=== PATIENT | female | born 1955 | race Caucasian/White ===

== ENCOUNTER 2017-11-22 05:58 | Emergency (ER) | payer BC ==
[~2017-11-22] VITALS: Ht 177.8 cm; Wt 66.7 kg
[~2017-11-22 05:58] MED LIST: PROZ40CA PO; ROSU40 PO
[2017-11-22 06:01] VITALS: BP 165/74; PULSE 58; RESP 18; TEMP 97.3; O2SAT 99
[2017-11-22] MEDS ORDERED: FLUO40CA PO (06:10)
[2017-11-22] MEDS ORDERED: ROSU1TAB4 PO (06:11)
--- NOTE | 2017-11-22 07:00 | PD ---
HPI Chief Complaint: Musculoskeletal Complaint Time Seen by Provider: 06:56 Travel History International Travel<30 days: No Contact w/Intl Traveler<30days: No Traveled to known affect area: No History of Present Illness HPI The patient is a 62-year-old female that complains of right sided neck pain with pain shooting down to her elbow beginning last night. When she moves her neck it causes severe pain, a 10/10. She denies any numbness or weakness in the rest of her arm. She has a history of disc disease at lumbar 5. The pain is sharp when she moves her neck. PFSH Past Medical History Depression: Yes Cancer: No Cardiovascular Problems: Yes (MITRAL VALVE PROLAPSE) High Cholesterol: Yes Diabetes: No Diminished Hearing: No Endocrine: No Gastrointestinal Disorders: Yes Genitourinary: No Immune Disorder: No Implanted Vascular Access Dvce: No Musculoskeletal: No Neurologic: No Psychiatric: No Reproductive: Yes ([id number]) Respiratory: No Seizures: Yes Tetanus Vaccination: Unknown Influenza Vaccination: No ?: Not : 0 Past Surgical History Abdominal Surgery: Yes (INGUIUNAL HERNIA REPAIR ) Gynecologic Surgery: Yes (LUMPECTOMY BILATERAL BREAST, HYSTERECTOMY) Hysterectomy: Yes Neurologic Surgery: Yes (CYST ON BRAIN) Tonsillectomy: Yes Other Surgery: Yes (BREAST CYSTS;HERNIA REPAIR) Social History Alcohol Use: Yes (2 DRINKS DAILY) Tobacco Use: No (QUIT 1995) Substance Use: No Allergies-Medications (Allergen,Severity, Reaction): Coded Allergies: Sulfa (Sulfonamide Antibiotics) (Unverified Allergy, Mild, Rash, 11/22/17) diatrizoate meglumine (Unverified Allergy, Mild, Rash, 11/22/17) gadobenic acid (Unverified Allergy, Mild, Rash, 11/22/17) gadodiamide (Unverified Allergy, Mild, Rash, 11/22/17) gadoteridol (Unverified Allergy, Mild, Rash, 11/22/17) iodixanol (Unverified Allergy, Mild, Rash, 11/22/17) iohexol (Unverified Allergy, Mild, Rash, 11/22/17) penicillin G (Unverified Allergy, Mild, Rash, 11/22/17) Reported Meds & Prescriptions Reported Meds & Active Scripts Active Reported Rosuvastatin (Rosuvastatin Calcium) 5 Mg Tab 5 Mg PO DAILY Fluoxetine (Fluoxetine HCl) 40 Mg Cap 40 Cap PO DAILY Review of Systems Except as stated in HPI: all other systems reviewed are Neg Physical Exam Narrative GENERAL: The patient is alert, oriented 3 in no apparent distress if she does not move her neck. Moving her neck causes her to scream out loud in severe pain. Her vital signs show blood pressure 165/74, temperature 97.3 with pulse rate of 58 but otherwise are normal. SKIN: Focused skin assessment warm/dry. HEAD: Atraumatic. Normocephalic. EYES: Pupils equal and round. No scleral icterus. No injection or drainage. ENT: No nasal bleeding or discharge. Mucous membranes pink and moist. NECK: Trachea midline. No JVD. CARDIOVASCULAR: Regular rate and rhythm. No murmur appreciated. RESPIRATORY: No accessory muscle use. Clear to auscultation. Breath sounds equal bilaterally. GASTROINTESTINAL: Abdomen soft, non-tender, nondistended. Hepatic and splenic margins not palpable. MUSCULOSKELETAL: No obvious deformities. No clubbing. No cyanosis. No edema. NEUROLOGICAL: Awake and alert. No obvious cranial nerve deficits. Motor grossly within normal limits. Normal speech. PSYCHIATRIC: Appropriate mood and affect; insight and judgment normal. Data Data Last Documented VS Vital Signs Date Time Temp Pulse Resp B/P (MAP) Pulse Ox O2 Delivery O2 Flow Rate FiO2 11/22/17 06:01 97.3 58 18 165/74 (104) 99 MDM Medical Decision Making Medical Screen Exam Complete: Yes Emergency Medical Condition: Yes Medical Record Reviewed: Yes Differential Diagnosis Cervical radiculopathy, herniated cervical disc, irritation of upper cervical roots, cord irritation Narrative Course It is now 0700 and the patient is transferred to Dr. Vizcarra. Chriss Sherman MD Nov 22, 2017 07:00
[2017-11-22] MEDS ORDERED: IBUPROFEN 600 MG TAB PO ONE (07:30)
--- NOTE | 2017-11-22 09:29 | RADRPT ---
EXAM DATE/TIME: 11/22/2017 09:09 [facility] COMPARISON: No previous studies available for comparison. INDICATIONS : Right sided neck pain and shoulder pain since yesterday. MEDICAL HISTORY : None. SURGICAL HISTORY : Umbilical hernia repair. Hysterectomy. Lumpectomy. Varicose vein stripping. ENCOUNTER: Initial ACUITY: 1 day PAIN SCORE: 6/10 LOCATION: Right neck. TECHNIQUE: Multiplanar, multisequence MRI examination of the cervical spine was performed. FINDINGS: VERTEBRAE: Normal vertebral body height. Homogeneous marrow signal. Degenerative disc disease with reactive deg enerative endplate changes at C5-6. There is spurring anteriorly and posteriorly. Diffuse disc desicc ation. Degenerative disease also C6-C7. ALIGNMENT: No evidence of subluxation. CORD: Normal configuration and signal. POST FOSSA: The cerebellar tonsils are normal in position. C2-C3: The thecal sac has a normal configuration. There is no evidence of disc herniation or spinal canal s tenosis. The neural foramina are patent bilaterally. C3-C4: The thecal sac has a normal configuration. There is no evidence of disc herniation or spinal canal s tenosis. The neural foramina are patent bilaterally. C4-C5: Small central protrusion abuts the ventral thecal sac and ventral cord. Slight cord flattening. No ca nal stenosis. The neural foramina are patent bilaterally. C5-C6: Shallow broad-based posterior disc osteophyte complex abuts the ventral thecal sac. No canal stenosis . Mild/moderate neural foraminal narrowing bilaterally. C6-C7: Shallow broad-based posterior disc osteophyte complex abuts the ventral thecal sac. There is no evide nce of spinal canal stenosis. The neural foramina are patent bilaterally. C7-T1: The thecal sac has a normal configuration. There is no evidence of disc herniation or spinal canal s tenosis. The neural foramina are patent bilaterally. CONCLUSION: 1. Degenerative changes at C4-5, C5-6 and C6-7 levels with small protrusions/posterior disc osteophyt e complexes. No canal stenosis. Srinivas Rich MD on November 22, 2017 at 9:22 Board Certified Radiologist. This report was verified electronically.
[2017-11-22] MEDS ORDERED: CYCL10TA PO (09:55)
--- NOTE | 2017-11-22 09:55 | PD ---
Physical Exam Date Seen by Provider: Nov 22, 2017 Time Seen by Provider: 09:52 Narrative This 62-year-old female had presented with right-sided neck pain which radiated down to the shoulder. She was seen initially by Dr. Sherman who ordered an MRI. The MRI shows degenerative changes with some impingement on the neural foramina. She was given ibuprofen and had some improvement with this. She is reluctant to take medications. She sees Dr. Souza for her back issues. He apparently also was following her for an arachnoid cyst. I will recommend that she use the ibuprofen and will prescribe some Flexeril. She is to follow-up with Dr. Souza Data Data Last Documented VS Vital Signs Date Time Temp Pulse Resp B/P (MAP) Pulse Ox O2 Delivery O2 Flow Rate FiO2 11/22/17 06:01 97.3 58 18 165/74 (104) 99 Orders Orders Mri C Spine W/O Contrast (11/22/17 07:00) Ibuprofen (Motrin) (11/22/17 07:30) MDM Medical Record Reviewed: Yes Supervised Visit with XAVIER: No Differential Diagnosis Differential is cervical radiculopathy Narrative Course Patient has a cervical radiculopathy. Follow-up with Dr. Souza Diagnosis Primary Impression: Cervical radiculopathy Scripts Cyclobenzaprine (Flexeril) 10 Mg Tab 10 MG PO TID for Muscle Spasm, #30 TAB 0 Refills Prov: Laci Gay MD 11/22/17 Disposition: 01 DISCHARGE HOME Condition: Stable Laci Gay MD Nov 22, 2017 09:55
== END 2017-11-22 10:14 | disposition home or self-care (01) ==
LOC: PHED 05:58
DX: M54.12 Radiculopathy, cervical region (principal); F32.9 Major depressive disorder, single episode, unspecified; E78.00 Pure hypercholesterolemia, unspecified; I34.1 Nonrheumatic mitral (valve) prolapse; Z87.891 Personal history of nicotine dependence
CPT/HCPCS: 72141; 99284